=== PATIENT | male | born 1945 | race Caucasian/White ===

== ENCOUNTER 2017-12-24 09:08 | Day surgery (SDC) | END 2017-12-24 12:11 | disposition home or self-care (01) ==

== ENCOUNTER 2019-05-06 15:29 | Inpatient (IN) | payer MEDICARE, BC ==
[~2019-05-06] VITALS: Ht 172.7 cm; Wt 85.0 kg
[2019-05-06] VITALS (14 sets, daily range): BP systolic 103–138; BP diastolic 68–89; PULSE 68–77; RESP 11–24; Ht 172.7 cm; Wt 85.0 kg
[~2019-05-06 15:29] MED LIST: ASPI-817 PO; ASPI-903 PO; ATOR10TA23 PO; DOCU-144 PO; ENAL10TA PO; ENAL1TAB PO; ERGO500013 PO; EZET1TAB42 PO; MAGN400T28 PO; METF-849 PO; METF500T24 PO; SENN-120 PO
[2019-05-06] MEDS ORDERED: ACETAMINOPHEN 325 MG TAB PO PRN ×3 (17:30→20:00)
[2019-05-06] MEDS ORDERED: HYDROCODONE/APAP (5/325) TAB PO PRN (17:30)
[2019-05-06] MEDS ORDERED: ONDANSETRON 4 MG INJ IV PRN ×3 (17:30→19:00)
[2019-05-06] MEDS ORDERED: NACL 0.9% 3 ML SYG IV SCH (17:30)
[2019-05-06] MEDS ORDERED: hydrALAzine 20 MG INJ IV PRN ×2 (17:30→19:00)
[2019-05-06] MEDS ORDERED: morphine 2 MG INJ IV PRN (17:30)
[2019-05-06] MEDS ORDERED: GLUCOSE GEL 15 GRAM TUBE BUCCAL PRN (18:00)
[2019-05-06] MEDS ORDERED: DEXTROSE 50% 50 ML SYRINGE IV PRN ×2 (18:00)
[2019-05-06] MEDS ORDERED: GLUCAGON 1 MG INJ IM PRN (18:00)
[2019-05-06] MEDS ORDERED: GLUCOSE GEL 15 GRAM TUBE PO PRN ×2 (18:00)
[2019-05-06] MEDS ORDERED: LIDOCAINE 100 MG SYRINGE ONE (18:48)
[2019-05-06] MEDS ORDERED: FENTAnyl 50 MCG/ML VIAL ONE (18:48)
[2019-05-06] MEDS ORDERED: PROPOFOL 20 ML ONE (18:48)
[2019-05-06] MEDS ORDERED: MIDAZOLAM 1 MG/ML 2 ML INJ ONE (18:48)
[2019-05-06] MEDS ORDERED: DIPHENHYDRAMINE 50 MG INJ IV PRN (19:00)
[2019-05-06] MEDS ORDERED: LABETALOL HCL 20MG INJ IV PRN (19:00)
[2019-05-06] MEDS ORDERED: MEPERIDINE 25 MG INJ IV PRN (19:00)
[2019-05-06] MEDS ORDERED: OXYCODONE/ACETAMINOPHEN (5/325) TAB PO PRN ×2 (19:00)
[2019-05-06] MEDS ORDERED: HYDROmorphONE 1 MG/5 ML IV SYRINGE IV PRN ×3 (19:00)
[2019-05-06] MEDS ORDERED: ALBUTEROL 0.083% (NEB) 2.5 MG/3 ML AMP HHN PRN (19:00)
[2019-05-06] MEDS ORDERED: IPRATROPIUM (NEB) 0.5 MG/2.5 ML AMP HHN PRN (19:00)
[2019-05-06] MEDS ORDERED: FENTAnyl 50 MCG/ML VIAL IV PRN ×3 (19:00)
[2019-05-06] MEDS ORDERED: EPHEDrine 25 MG/5 ML SYG IV PRN (19:00)
[2019-05-06] MEDS ORDERED: HYDROCODONE/APAP (10/325) TAB PO PRN (20:00)
[2019-05-06] MEDS: INSULIN ASPART [NOVOLOG] 3 ML PEN SC SCH ×2 (21:00→21:30)
[2019-05-06] MEDS: DEXTROSE 5%-0.45% NACL 1,000 ML IV SCH (21:45)
[2019-05-06] MEDS: D5-NS + KCL 20 MEQ 1,000 ML IV SCH ×2 (21:45→23:11)
[2019-05-07] MEDS ORDERED: ACCU-CHEK XX SCH (02:00)
[2019-05-07] MEDS: DEXTROSE 5%-0.45% NACL 1,000 ML IV SCH (06:49)
[2019-05-07] MEDS ORDERED: ENOXAPARIN 40 MG/0.4 ML SYG SC SCH (07:00)
[2019-05-07] MEDS: INSULIN ASPART [NOVOLOG] 3 ML PEN SC SCH (07:30)
[2019-05-07 08:48] VITALS: BP 131/77; RESP 18
[2019-05-07] MEDS ORDERED: ENALAPRIL 5 MG TAB PO SCH (09:00)
[2019-05-07] MEDS ORDERED: HYDROCHLOROTHIAZIDE 12.5 MG CAP PO SCH (09:00)
[2019-05-07] MEDS: D5-NS + KCL 20 MEQ 1,000 ML IV SCH (09:49)
[2019-05-07] MEDS ORDERED: DOCUSATE SODIUM 100 MG CAP PO ONE (10:30)
== END 2019-05-07 11:25 | disposition home or self-care (01) | DRG 346 ==
LOC: E/R 15:29 → REC 17:13 → MS1 21:49
PROVIDERS: ADMIT Internal Medicine; ATTEND Internal Medicine
PROC: 0DCP0ZZ Extirpation of Matter from Rectum, Open Approach (ICD-10-PCS; principal; 2019-05-06 19:30)
DX: T18.5XXA Foreign body in anus and rectum, initial encounter (principal); I10 Essential (primary) hypertension; K59.00 Constipation, unspecified; E78.5 Hyperlipidemia, unspecified; E11.9 Type 2 diabetes mellitus without complications; Z79.82 Long term (current) use of aspirin; Z79.84 Long term (current) use of oral hypoglycemic drugs; X58.XXXA Exposure to other specified factors, initial encounter
CPT/HCPCS: 36415; 71045; 74018; 74176; 80048; 80053; 82962; 83036; 83735; 84484; 85025; 85610; 85730; 88300; 93005; J1650; J1815; J2001; J2250; J3010; J3480; J7042